=== PATIENT | male | born 1940 | race Caucasian/White ===

== ENCOUNTER → 2016-07-19 | Outpatient (CLI) | payer OTHER, MEDICARE | LOC: BMCIMAGING 11:10 | PROVIDERS: ATTEND Internal Medicine Cardiovascular Disease | DX: R06.89 Other abnormalities of breathing (principal); I51.7 Cardiomegaly ==

== ENCOUNTER → 2017-01-01 | Outpatient (CLI) | payer OTHER, MEDICARE | LOC: SBRMNEURO 20:00 | PROVIDERS: ATTEND Psychiatry & Neurology Sleep Medicine | DX: G47.33 Obstructive sleep apnea (adult) (pediatric) (principal); G47.31 Primary central sleep apnea; G47.61 Periodic limb movement disorder ==

== ENCOUNTER → 2017-02-26 | Outpatient (CLI) | payer OTHER, MEDICARE | LOC: SBRMNEURO 20:00 | PROVIDERS: ATTEND Psychiatry & Neurology Sleep Medicine | DX: G47.33 Obstructive sleep apnea (adult) (pediatric) (principal); G47.31 Primary central sleep apnea; G47.61 Periodic limb movement disorder ==